=== PATIENT | female | born 1965 | race African-American/Black ===

== ENCOUNTER 2019-02-19 14:43 | Emergency (ER) | payer SELFPAY ==
[~2019-02-19] VITALS: Ht 162.6 cm; Wt 78.0 kg
[2019-02-19 14:51] VITALS: BP 185/95
== END 2019-02-19 18:23 | disposition left against medical advice (07) ==
LOC: ER 17:18
DX: Z53.21 Procedure and treatment not carried out due to patient leaving prior to being seen by health care provider (principal)